=== PATIENT | male | born 1960 | race African-American/Black ===

== ENCOUNTER 2017-06-18 14:30 | Inpatient (IN) | payer BC ==
[2017-06-18 15:20] LABS: Basophils % (Auto) 1.2 % (0.0-1.8); Hematocrit 47.7 % (35.5-45.6); Mean Corpuscular HGB Conc 34 % (32-34); Mean Corpuscular Hemoglobin 28 pg (28-32); Mean Corpuscular Volume 83 fl (84-94); Platelet Count 286 K/mm3 (140-440); Red Blood Count 5.79 M/mm3 (3.65-5.03); Red Cell Distribution Width 16.1 % (13.2-15.2); White Blood Count 7.7 K/mm3 (4.5-11.0)
[2017-06-18 16:12] LABS: Anion Gap 18 mmol/L; BUN/Creatinine Ratio 18; Blood Urea Nitrogen 11 mg/dL (9-20); Carbon Dioxide 26 mmol/L (22-30); Glucose 118 mg/dL (75-100); Potassium 3.7 mmol/L (3.6-5.0); Sodium 140 mmol/L (137-145)
--- NOTE | 2017-06-19 01:36 | Emergency Department Report ---
ED Chest Pain HPI - General Chief Complaint: Chest Pain Stated Complaint: CHEST PAIN Time Seen by Provider: 06/19/17 01:32 Source: patient Mode of arrival: Ambulatory Limitations: No Limitations - History of Present Illness Initial Comments: Patient is a 56-year-old male that presents to ER with chest pain for one week. She states he stopped taking his cluster medication week ago and that is when his chest pain started. Patient was also smoker. She denies chest pain and fever and chills. Patient does not take aspirin everyday. Patient denies anxiety and diaphoresis. Patient states that the chest pain is in his right chest and substernal. Pain does not radiate. MD Complaint: chest pain -: Gradual, days(s) (7 days) Onset: during rest, during exertion Pain Location: substernal, right chest Pain Radiation: none Severity scale (0 -10): 3 Quality: tightness, aching, heaviness Consistency: constant Improves With: rest Worsens With: exertion Treatments Prior to Arrival: none Aspirin use within the Past 7 Days: (0) No - Related Data On Oral Contraceptives: No Allergies Allergy/AdvReac Type Severity Reaction Status Date / Time No Known Allergies Allergy Unverified 06/18/17 14:47 Heart Score - HEART Score History: Slightly suspicious EKG: Normal Age: 45-65 Risk factors: No known risk factors Troponin: < normal limit HEART Score: 1 ED Review of Systems ROS: Stated complaint: CHEST PAIN Other details as noted in HPI Comment: All other systems reviewed and negative Constitutional: no symptoms reported Eyes: as per HPI ENT: as per HPI Respiratory: no symptoms reported Cardiovascular: as per HPI, chest pain Endocrine: no symptoms reported Gastrointestinal: as per HPI Genitourinary: as per HPI Musculoskeletal: as per HPI Skin: as per HPI Neurological: as per HPI Psychiatric: as per HPI Hematological/Lymphatic: as per HPI ED Past Medical Hx - Past Medical History Previous Medical History?: Yes Additional medical history: High cholesterol - Surgical History Past Surgical History?: No - Family History Family history: hypertension - Social History Smoking Status: Current Every Day Smoker Substance Use Type: Alcohol, Prescribed ED Physical Exam - General Limitations: No Limitations General appearance: alert, in no apparent distress - Head Head exam: Present: atraumatic, normocephalic - Eye Eye exam: Present: normal appearance - ENT ENT exam: Present: mucous membranes moist - Neck Neck exam: Present: normal inspection - Respiratory Respiratory exam: Present: normal lung sounds bilaterally. Absent: respiratory distress - Cardiovascular Cardiovascular Exam: Present: regular rate, normal rhythm. Absent: systolic murmur, diastolic murmur, rubs, gallop - GI/Abdominal GI/Abdominal exam: Present: soft, normal bowel sounds - Rectal Rectal exam: Present: deferred - Extremities Exam Extremities exam: Present: normal inspection - Back Exam Back exam: Present: normal inspection - Neurological Exam Neurological exam: Present: alert, oriented X3 - Psychiatric Psychiatric exam: Present: normal affect, normal mood - Skin Skin exam: Present: warm, dry, intact, normal color. Absent: rash ED Course Vital Signs 06/18/17 06/18/17 14:47 22:34 Temperature 97.8 F 98.1 F Pulse Rate 85 68 Respiratory 20 16 Rate Blood Pressure 130/82 Blood Pressure 128/80 [Right] O2 Sat by Pulse 98 99 Oximetry NORBERT score - Norbert Score Age > 65: (0) No Aspirin use within the Past 7 Days: (0) No 3 or more CAD Risk Factors: (0) No 2 or more Angina events in past 24 hrs: (0) No Known CAD with more than 50% Stenosis: (0) No Elevated Cardiac Markers: (0) No ST Deviation Greater than 0.5mm: (0) No NORBERT Score: 0 ED Medical Decision Making - Lab Data Result diagrams: 06/18/17 15:09 06/18/17 15:09 - EKG Data -: EKG Interpreted by Ia EKG shows normal: sinus rhythm Rate: normal - EKG Data Interpretation: no acute changes, normal EKG - Medical Decision Making Hospitalist was consulted for admission to rule out ACS - Differential Diagnosis cp. rib pain. angina Critical care attestation.: If time is entered above; I have spent that time in minutes in the direct care of this critically ill patient, excluding procedure time. ED Disposition Clinical Impression: Chest pain Disposition: OP ADMIT IP TO THIS HOSP Is pt being admited?: Yes Does the pt Need Aspirin: No Condition: Serious Referrals: HRAMONY ALLEN MD [Primary Care Provider] - 3-5 Days Time of Disposition: 01:49
[2017-06-19] MEDS ORDERED: ASPIRIN PO ONE (01:37)
--- NOTE | 2017-06-19 02:24 | XRay Report ---
FINAL REPORT EXAM: XR CHEST 1V AP HISTORY: cp COMPARISON: None available. FINDINGS: Frontal view(s) of the chest obtained. Cardiac silhouette within normal limits. No gross consolidation or effusion. No pneumothorax. IMPRESSION: No grossly acute findings.
[2017-06-19] MEDS ORDERED: MORPHINE IV PRN (03:08)
[2017-06-19] MEDS ORDERED: TYLENOL PO PRN (03:08)
[2017-06-19] MEDS ORDERED: DULCOLAX PR PRN (03:08)
[2017-06-19] MEDS ORDERED: MILK OF MAGNESIA PO PRN (03:08)
[2017-06-19] MEDS ORDERED: ZOFRAN IV PRN (03:08)
[2017-06-19 03:48] LABS: Creatine Kinase MB 2.1 ng/mL (0.0-4.0)
[2017-06-19 03:49] LABS: Creatine Kinase 57 units/L (55-170)
--- NOTE | 2017-06-19 04:50 | History and Physical Report ---
History of Present Illness Date of examination: 06/19/17 Date of admission: 06/19/17 03:08 History of present illness: 56-year-old man with a history of HLD comes emergency room with complaints of chest pain that started yesterday. Pain is in the right chest which he describes as a sharp pain, intermittent every 5 minutes, intensity 5/10, no radiation, relieved with medications given in the emergency room, cannot identify exacerbating factors. She had a stress test in September which was negative Review Of Systems: Constitutional: no weight loss Ears, eyes, nose, mouth and throat: no nasal congestion, no nasal discharge, no sinus pressure, blurry vision, diplopia Neck: No neck pain or rigidity. Cardiovascular: no orthopnea, palpitations Respiratory: No shortness of breath, cough Gastrointestinal: no abdominal pain, hematochezia Genitourinary : no dysuria, frequency , hematuria Musculoskeletal: no muscle ache Integumentary: no rash, no pruritis Neurological: no parathesias, focal weakness Endocrine: no cold or heat intolerance, no polyuria or polydipsia Hematologic/Lymphatic: no easy bruising, no easy bleeding, no gland swelling Allergic/Immunologic: no urticaria, no angioedema. PAST MEDICAL HISTORY:HLD PAST SURGICAL HISTORY:none FAMILY HISTORY: Hypertension SOCIAL HISTORY: Smoke a quarter pack a day, social use, no drugs Medications and Allergies Allergies Allergy/AdvReac Type Severity Reaction Status Date / Time No Known Allergies Allergy Unverified 06/18/17 14:47 Active Meds: Active Medications Acetaminophen (Tylenol) 650 mg PO Q4H PRN PRN Reason: Pain MILD(1-3)/Fever >100.5/FRANCO Bisacodyl (Dulcolax) 10 mg DE QDAY PRN PRN Reason: Constipation unrelieved by MOM Enoxaparin Sodium (Lovenox) 40 mg SUB-Q QDAY DUNCAN Magnesium Hydroxide (Milk Of Magnesia) 30 ml PO Q4H PRN PRN Reason: Constipation Morphine Sulfate (Morphine) 2 mg IV Q4H PRN PRN Reason: Pain, Moderate (4-6) Ondansetron HCl (Zofran) 4 mg IV Q8H PRN PRN Reason: N/V unrelieved by Reglan Exam - Physical Exam Narrative exam: Gen. appearance: Patient lying in bed in no acute distress HEENT: Normocephalic/atraumatic, pupils equal round reactive to light, extra alkaline movement intact, no scleral icterus, no JVD or thyromegaly or nodule, neck is supple, mucous membrane moist, no erythema or exudate Heart: S1-S2, regular rate and rhythm Lungs: Clear to auscultation bilateral breathing comfortable Abdomen: Positive bowel sounds, nontender, nondistended, no organomegaly Extremities: No edema, cyanosis, clubbing Neuro:: Oriented 3 , cranial nerves II-12 intact, speech, motor intact Skin: No rash, nodules, warm dry - Constitutional Vitals: Temp Pulse Resp BP Pulse Ox 98.1 F 63 19 116/76 97 06/18/17 22:34 06/19/17 03:00 06/19/17 03:00 06/19/17 03:00 06/19/17 03:00 Results - Labs CBC & Chem 7: 06/18/17 15:09 06/18/17 15:09 Labs: Abnormal lab results 06/18/17 06/18/17 Range/Units 15:09 15:09 RBC 5.79 H (3.65-5.03) M/mm3 Hgb 16.0 H (11.8-15.2) gm/dl Hct 47.7 H (35.5-45.6) % MCV 83 L (84-94) fl RDW 16.1 H (13.2-15.2) % Jasper % (Auto) 8.8 H (0.0-7.3) % Creatinine 0.6 L (0.8-1.5) mg/dL Glucose 118 H (75-100) mg/dL - Imaging and Cardiology EKG: image reviewed Chest x-ray: image reviewed Assessment and Plan Assessment Chest pain HLD Plan Admit to medicine Check cardiac enzymes, stress test, IV morphine DVT prophylaxis with SCD
[2017-06-19] MEDS ORDERED: LEXISCAN IV ONE (09:45)
[2017-06-19] MEDS ORDERED: LOVENOX SUB-Q SCH (10:00)
[2017-06-19 11:34] LABS: Creatine Kinase 79 units/L (55-170)
--- NOTE | 2017-06-19 14:40 | Discharge Summary ---
Providers - Providers Date of Admission: 06/19/17 03:08 Attending physician: MONY CAMACHO MD Primary care physician: HARMONY ALLEN Hospitalization Reason for admission: chest pain Condition: Serious Hospital course: 56-year-old man with a history of HLD comes emergency room with complaints of chest pain that started yesterday. Pain is in the right chest which he describes as a sharp pain, intermittent every 5 minutes, intensity 5/10, no radiation, relieved with medications given in the emergency room, cannot identify exacerbating factors. he had a stress test in September which was negative. On admission patient presented to have a repeat stress test which was unremarkable. We did have extensive counseling to the patient the medication compliance and also follow-up by Drs. He verbalized understanding. He is clinically stable for discharge at this time Atypical chest pain likely costochondritis Hyperlipidemia Disposition: TO HOME OR SELFCARE Time spent for discharge: 32 Core Measure Documentation - Palliative Care Palliative Care/ Comfort Measures: Not Applicable - Core Measures Any of the following diagnoses?: none - VTE Discharge Requirements Deep Vein Thrombosis/Pulmonary Embolism Present on Admission: No Exam - Physical Exam Narrative exam: VITAL SIGNS: Reviewed. GENERAL: The patient appeared well nourished and normally developed. Vital signs as documented. HEAD: No signs of head trauma. EYES: Pupils are equal. Extraocular motions intact. EARS: Hearing grossly intact. MOUTH: Oropharynx is normal. NECK: No adenopathy, no JVD. CHEST: Chest with clear breath sounds bilaterally. No wheezes, rales, or rhonchi. CARDIAC: Regular rate and rhythm. S1 and S2, without murmurs, gallops, or rubs. VASCULAR: No Edema. Peripheral pulses normal and equal in all extremities. ABDOMEN: Soft, without detectable tenderness. No sign of distention. No rebound or guarding, and no masses palpated. Bowel Sounds normal. MUSCULOSKELETAL: Good range of motion of all major joints. Extremities without clubbing, cyanosis or edema. NEUROLOGIC EXAM: Alert and oriented x 3. No focal sensory or strength deficits. Speech normal. Follows commands. PSYCHIATRIC: Mood normal. SKIN: No rash or lesions. - Constitutional Vitals: Temp Pulse Resp BP Pulse Ox 98.4 F 64 16 106/72 100 06/19/17 10:44 06/19/17 12:30 06/19/17 12:30 06/19/17 12:30 06/19/17 12:30 Plan Activity: advance as tolerated, fall precautions Diet: low fat Special Instructions: record daily BP diary Follow up with: HARMONY ALLEN MD [Primary Care Provider] - 3-5 Days
[2017-06-19 16:25] VITALS: BP 105/66
--- NOTE | 2017-06-19 22:19 | Treadmill Report ---
THALLIUM STRESS TEST LEFT VENTRICLE: Left ventricular chamber size is within normal. Perfusion study demonstrates homogeneous uptake of the tracer in all segments, no significant perfusion defects identified. Mild diaphragmatic attenuation artifact is noted. Gated analysis demonstrates normal left ventricular systolic function, ejection fraction 70%. CONCLUSION: Normal myocardial perfusion study. JOB# [id number] CA/NTS
== END 2017-06-19 16:11 | disposition home or self-care (01) | DRG 206 ==
LOC: ED 14:30 → 4A 06-19 03:08
PROVIDERS: ADMIT Internal Medicine; ATTEND Internal Medicine
DX: M94.0 Chondrocostal junction syndrome [Tietze] (principal); E78.5 Hyperlipidemia, unspecified; F17.210 Nicotine dependence, cigarettes, uncomplicated; Z82.49 Family history of ischemic heart disease and other diseases of the circulatory system
CPT/HCPCS: 36415; 71010; 78452; 80048; 82550; 82553; 84484; 85025; 93005; 93010; 93017; 96372; A9502; J1650; J2785

== ENCOUNTER 2018-02-11 07:18 | Outpatient (CLI) | payer BC ==
[2018-02-11 08:19] LABS: Hemoglobin 14.9 gm/dl (11.8-15.2); Mean Corpuscular HGB Conc 33 % (32-34); Mean Corpuscular Hemoglobin 26 pg (28-32); Mean Corpuscular Volume 80 fl (84-94); Platelet Count 325 K/mm3 (140-440); Red Blood Count 5.63 M/mm3 (3.65-5.03); Red Cell Distribution Width 16.6 % (13.2-15.2)
[2018-02-11 08:22] LABS: Alanine Aminotransferase 29 units/L (7-56); Albumin 4.4 g/dL (3.9-5); BUN/Creatinine Ratio 17; Blood Urea Nitrogen 12 mg/dL (9-20); Calcium 9.6 mg/dL (8.4-10.2); Chol/HDL Ratio 4.77 %; HDL Cholesterol 49 mg/dL (40-59); Hemolysis Index 6; LDL Cholesterol,Direct 128 mg/dL (50-130)
--- NOTE | 2018-02-11 08:59 | Cat Scan Report ---
CT CHEST WITH CONTRAST: HISTORY: Right apical lung nodule. COMPARISON: AP chest dated 06/19/17. No previous CT at this facility. TECHNIQUE: Helical CT in 1.25mm intervals following IV contrast. Sagittal and coronal reformatted images. FINDINGS: Thyroid gland: Normal. Tracheobronchial tree: Normal. Esophagus: Normal. Heart: Normal. Pericardium: Normal. Mediastinum: Normal. Lung Swann: Normal. Pleural Spaces: Normal. Musculoskeletal: Normal. 1 cm bone island in the right anterior first rib is noted. IMPRESSION: Unremarkable CT chest with contrast. The 1 cm nodular density suggested at the right apex on previous chest x-ray actually represents a small bone island in the right first rib.
== END 2018-02-11 07:19 | disposition home or self-care (01) ==
LOC: CT 07:18
PROVIDERS: ATTEND Internal Medicine
DX: R91.1 Solitary pulmonary nodule (principal)
CPT/HCPCS: 36415; 71260; 80053; 80061; 84436; 84443; 85027; Q9967